=== PATIENT | male | born 1990 | race Caucasian/White ===

== ENCOUNTER 2021-09-15 13:11 | Emergency (ER) | payer MEDICAID, OTHER ==
[~2021-09-15] VITALS: Ht 167.6 cm; Wt 77.1 kg
[2021-09-15 13:30] VITALS: BP_SYST 159
--- NOTE | 2021-09-15 14:06 | NUR ---
Patient to ER bed 03 to gown for evaluation. Side rails up.
--- NOTE | 2021-09-15 14:08 | NUR ---
Pt brought by self, A&Ox4,pt presents to ER with lower/middle back pain x 2 days, states he has Hx of abnormal disc, denies recent trauma, pt states he can not have narcotics since he is on Alcohol rehab program, respirations even and unlabored, cap refill <3.
--- NOTE | 2021-09-15 14:15 | NUR ---
Dr Mcdonald evaluating patient at bedside
[2021-09-15] MEDS ORDERED: DIAZEPAM 5 MG TABLET (VALIUM) PO ONE (14:45)
[2021-09-15] MEDS ORDERED: KETOROLAC TROMETHAMINE 30 MG VIAL IM ONE (14:45)
--- NOTE | 2021-09-15 14:57 | NUR ---
Pt eloped. mentally retarded teacher and Dr. Mcdonald notified. Went to assess pt and provide medications but no where to be found. technical architect also was looking for pt to do XRay but cannot find pt either. Checked in bathrroms and waiting room but pt still not found.
== END 2021-09-15 14:57 | disposition left against medical advice (07) ==
LOC: SED 13:11
DX: M54.50 Low back pain, unspecified (principal)
CPT/HCPCS: 99281; J1885